=== PATIENT | male | born 1970 | race Caucasian/White ===

== ENCOUNTER 2023-10-20 18:04 | Emergency (ER) | payer OTHER ==
[~2023-10-20] VITALS: Ht 180.3 cm; Wt 93.0 kg
== END 2023-10-20 22:05 | disposition home or self-care (01) ==
LOC: ER 18:04
DX: L03.012 Cellulitis of left finger (principal); R22.1 Localized swelling, mass and lump, neck; E11.65 Type 2 diabetes mellitus with hyperglycemia

== ENCOUNTER 2023-12-01 16:58 | Inpatient (IN) | payer OTHER ==
[~2023-12-01] VITALS: Ht 180.3 cm; Wt 94.4 kg
[~2023-12-01 16:58] MED LIST: SULTRIDS PO
[2023-12-01] MEDS ORDERED: OMEP20ER PO (17:17)
[2023-12-01] MEDS ORDERED: GLIP5 PO (17:17)
[2023-12-01 17:21] LABS: BASOPHILS ABSOLUTE AUTO 0.02 K/mm3 (0.00-0.23); BASOPHILS PERCENT AUTO 0 % (0-2); EOSINOPHILS ABSOLUTE AUTO 0.04 K/mm3 (0.00-0.68); EOSINOPHILS PERCENT AUTO 0 % (0-6); Hematocrit 43.5 % (37.0-53.0); Hemoglobin 15.2 g/dL (13.5-17.5); IMMATURE GRAN ABSOLUTE AUTO 0.09 K/mm3 (0.00-0.10); IMMATURE GRAN PERCENT AUTO 1 % (0-1); LYMPHOCYTES ABSOLUTE AUTO 0.62 K/mm3 (0.84-5.20); LYMPHOCYTES PERCENT AUTO 5 % (21-46); MONOCYTES ABSOLUTE AUTO 0.93 K/mm3 (0.16-1.47); MONOCYTES PERCENT AUTO 7 % (4-13); Mean Corpuscular HGB 29.2 pg (26.0-34.0); Mean Corpuscular HGB Conc 34.9 g/dL (31.5-36.5); Mean Corpuscular Volume 84 fL (80-100); Mean Platelet Volume 9.6 fL (9.1-12.4); NEUTROPHILS ABSOLUTE AUTO 12.09 K/mm3 (1.96-9.15); NEUTROPHILS PERCENT AUTO 88 % (41-73); Platelet Count 234 K/mm3 (150-400); RDW Coefficient Variation 12.5 % (11.7-14.2); RDW Standard Deviation 38.1 fL (35.1-46.3); White Blood Cell Count 13.79 K/mm3 (4.00-11.30)
[2023-12-01] MEDS ORDERED: NS 1,000 ML IV ONE (17:25)
[2023-12-01] MEDS ORDERED: Ampicillin Sod/Sulbactam Sod 3 GM in NS 100 ML IV ONE (17:50)
[2023-12-01] MEDS ORDERED: NS 1,000 ML IV SCH ×2 (17:50)
[2023-12-01] MEDS ORDERED: HYDROmorphone HCl/Pf 1MG SYR IV ONE ×2 (17:55→22:50)
[2023-12-01] MEDS ORDERED: Ondansetron HCl 2 MG / ML 2ML Vial IV ONE (17:55)
[2023-12-01 18:03] LABS: Albumin, Blood 3.4 g/dL (3.4-5.0); Albumin/Globulin Ratio 0.7 (0.8-1.8); Bilirubin, Total 0.6 mg/dL (0.1-1.0); Bun/Creatinine Ratio 8.6 (12.0-20.0); Calcium, Blood 9.2 mg/dL (8.5-10.1); Creatinine, Blood 0.93 mg/dL (0.60-1.20); Globulin, Blood 4.9 g/dL (2.2-4.0); Potassium, Blood 4.2 mmol/L (3.5-5.5); Total Protein, Blood 8.3 g/dL (6.4-8.2)
[2023-12-01 18:31] LABS: pH Blood Venous 7.34 (7.34-7.37)
[2023-12-01 18:32] LABS: Base Excess Venous 0.7 mmol/L; Bicarbonate Venous 23.5 mmol/L (24.0-30.0); PCO2 Venous 49.3 mmHg (38-42)
[2023-12-01] MEDS ORDERED: Dexamethasone Sod Phos 10 MG/ML 1ML VIAL IV ONE (22:15)
[2023-12-01] MEDS ORDERED: Magnesium Hydroxide Conc 10 ML UDC PO PRN (22:55)
[2023-12-01] MEDS ORDERED: Acetaminophen 325 MG TABLET PO PRN (23:00)
[2023-12-01] MEDS ORDERED: Ondansetron HCl 2 MG / ML 2ML Vial IV PRN (23:00)
[2023-12-01] MEDS ORDERED: Insulin NPH 100 Unit / ML 10ML Vial SC ONE (23:40)
[2023-12-01] MEDS ORDERED: HydrALAZINE HCl 20 MG / ML 1ML Vial IV PRN (23:45)
[2023-12-02] VITALS (9 sets, daily range): BP systolic 105–126; BP diastolic 73–90
[2023-12-02] MEDS ORDERED: NS 1,000 ML IV SCH
[2023-12-02] MEDS ORDERED: Ampicillin Sod/Sulbactam Sod 3 GM in NS 100 ML IV SCH
--- NOTE | 2023-12-02 02:00 | NUR ---
ARRIVAL TO PCU NOTE RECEIVED REPORT FROM RESIDENTIAL LEASING AGENT NUZHAT BURT AT 0050, PT SHORTLY ARRIVED TO PCU 2 AT 0117. TRANSFERRED FROM [facility] TO PCU BED VIA 1 ASSIST. A/Ox4 AND COOPERATIVE WITH CARE. RIGHT FACIAL/NECK MASS NOTED TO BE TENDER, FIRM, AND WARM TO THE TOUCH. REPORTS CHONIC VISION ISSUES FOR RIGHT EYE DUE TO OLD INJURY. CARDIAC, TELEMETRY SHOWS SR 90'S WITH NO REPORTS OF CP, PRESSURE, OR DIZZINESS. SBP STABLE RANGING 120'S. RESPIRATORY, MAINTAINS SPO2 >90% ON RA. ENDORSES INCREASING DIFFICULTY BREATHING SINCE MASS HAS INCREASED IN SIZE. RR EVEN AND UNLABORED WITH NO STRIDOR NOTED UPON ARRIVAL. GI/, BS PRESENT IN ALL QUADRANTS. DEBNIES N/V/D OR ABD TENDERNESS. REPORTS HX OF URINARY URGENCY. ENDORSES IV METH USE "ABOUT 5 DAYS AGO". ALSO REPORTS HX OF COCAINE USE. CHECKED UPON ARRIVAL SHOWING CB, INSULIN ORDERED PER EMAR. PT STATES, "MY BLOOD SUGAR NORMALLY RANGES BETWEEN 220-270 AT HOME". DENIES INSULIN USE AT HOME AND ONLY USES ORAL GLUCOSE CONTROLLING MEDICATIONS. ENT CONSULT IN PLACE. WILL CONTINUE TO PROCESS MD ORDERS. BALDOMERO BUTT UPON ARRIVAL TO PCU.
[2023-12-02 04:58] LABS: BASOPHILS ABSOLUTE AUTO 0.03 K/mm3 (0.00-0.23); BASOPHILS PERCENT AUTO 0 % (0-2); EOSINOPHILS ABSOLUTE AUTO 0.01 K/mm3 (0.00-0.68); EOSINOPHILS PERCENT AUTO 0 % (0-6); Hematocrit 40.6 % (37.0-53.0); Hemoglobin 13.8 g/dL (13.5-17.5); IMMATURE GRAN ABSOLUTE AUTO 0.21 K/mm3 (0.00-0.10); IMMATURE GRAN PERCENT AUTO 1 % (0-1); LYMPHOCYTES ABSOLUTE AUTO 0.54 K/mm3 (0.84-5.20); LYMPHOCYTES PERCENT AUTO 4 % (21-46); MONOCYTES ABSOLUTE AUTO 0.45 K/mm3 (0.16-1.47); MONOCYTES PERCENT AUTO 3 % (4-13); Mean Corpuscular Volume 82 fL (80-100); Mean Platelet Volume 10.2 fL (9.1-12.4); NEUTROPHILS ABSOLUTE AUTO 13.82 K/mm3 (1.96-9.15); NEUTROPHILS PERCENT AUTO 92 % (41-73); Platelet Count 223 K/mm3 (150-400); RDW Coefficient Variation 12.4 % (11.7-14.2); RDW Standard Deviation 37.3 fL (35.1-46.3); Red Blood Cell Count 4.93 M/mm3 (4.30-5.90); White Blood Cell Count 15.06 K/mm3 (4.00-11.30)
[2023-12-02 05:20] LABS: Bun/Creatinine Ratio 12.7 (12.0-20.0); Calcium, Blood 8.5 mg/dL (8.5-10.1); Creatinine, Blood 0.63 mg/dL (0.60-1.20); Potassium, Blood 4.2 mmol/L (3.5-5.5)
[2023-12-02] MEDS ORDERED: Pantoprazole Sodium 40 MG Injection IV SCH (06:00)
[2023-12-02] MEDS ORDERED: Dexamethasone Sod Phos 10 MG/ML 1ML VIAL IV SCH (06:00)
--- NOTE | 2023-12-02 06:12 | NUR ---
SHIFT SUMMARY NO ACUTE CHANGES SINCE ARRIVAL TO PCU NOTE. SEE NOT FOR MORE DETAILS. CONTINUES TO MAINTAIN SPO2 >90% ON RA. NO INCREASE IN NECK MASS NOTED. ENT CONSULT CALLED IN THIS AM TO ANSWERING SERVICE. NO NEW ORDERS AT THIS TIME. WILL REPORT TO ONCOMING RN. MARIYA BUTT OF THIS NOTE.
[2023-12-02] MEDS ORDERED: Lactobacil 2-S.Thermo-Bifido 1 1 Cap PO SCH (09:00)
[2023-12-02] MEDS ORDERED: Insulin NPH 100 Unit / ML 10ML Vial SC SCH ×2 (09:00→21:00)
[2023-12-02] MEDS ORDERED: Enoxaparin 40 MG/0.4 ML SYR SC SCH (09:00)
[2023-12-02] MEDS ORDERED: Insulin Human Lispro 100 Units/ML 3ML Syringe SC SCH ×4 (09:45→21:25)
[2023-12-02] MEDS ORDERED: Lidocaine HCl 4% Topical Soln 50 ML BTL TOP ONE (10:55)
[2023-12-02] MEDS ORDERED: Lidocaine HCl 4% 5 ML SDA INH ONE (11:00)
[2023-12-02] MEDS ORDERED: Oxymetazoline 0.05% Nasal Relief Spray 15mL BTL ONE (11:30)
[2023-12-02] MEDS ORDERED: CLINDAMYCIN PHOSPHATE/D5W 50 ML IV SCH (12:00)
--- NOTE | 2023-12-02 13:36 | NUR ---
Upon receiving a referral for spiritual care, I visited the patient. He talks at length about his life. He shares about his more shining moments and is open about his areas where growth is needed. He shares his fears about what is happening with him medically but says that he is focusing on God. He also shares his unique views about what the Bible says but also speaks of his commitment to God and bringing Him glory. He explains about his significant other and how she has changed his life for the better. I normalize his fears and feelings and provided therapeutic listening and prayer. Patient responded well and showed signs of greater hope and an elevated mood. I will cotntinue to remain available to patient and family.
[2023-12-02] MEDS ORDERED: Lidocaine 2%-Epineph 1:100000 20 ML MDV ONE (14:55)
[2023-12-02] MEDS ORDERED: [UNRECOGNIZED DRUG - OTHER] INFIL SCH (14:55)
[2023-12-02] MEDS ORDERED: FentaNYL Citrate 50 MCG/ML 2 ML Injection ONE (15:16)
[2023-12-02] MEDS ORDERED: FentaNYL Citrate 50 MCG/ML 2 ML Injection IV ONE (15:20)
[2023-12-02] MEDS ORDERED: TraMADol HCl 50 MG Tab PO PRN (16:00)
--- NOTE | 2023-12-02 16:08 | NUR ---
DR. NICOLAS CAME TO BEDSIDE AND DID A LARYNGOSCOPY. AT BEDSIDE WAS LEXIE RT, ALBARO [facility] ICU ROCKET MOTOR MECHANIC, CHALINO SU PCU ROCKET MOTOR MECHANIC, AND AYAH MANAGER BODY. AFTER THE SCOPE DR. NICOLAS GAVE THE PT EPI/LICOCANE SUBQ INTO RIGHT SIDE OF NECK MASS. HE LANCED THE SITE AND PLACED A DRAIN. 75MCG OF FENTANYL WAS GIVEN FOR PAIN DURING THE PROCEDURE. DRAIN WAS SUTURED UP AND 4X4 GAUZE PLACED TO ABSORB THE DRAINAGE. VS REMAIN STABLE.
[2023-12-02] MEDS ORDERED: Insulin Glargine-Yfgn 100 Unit/mL 3 ML SYR SC SCH ×2 (17:00→21:25)
--- NOTE | 2023-12-02 17:42 | NUR ---
SHIFT SUMMARY A&OX4, IND IN THE ROOM, CALLS APPROPRAITELY, AND CAN MAKE HIS NEEDS KNOWN. HE USES THE URINAL AT BEDSIDE. THE PT HAS BEEN SR ON TELE W/O ANY ANGINA OR CHEST PRESSURE. HE REMAINS ON RA AND SP02 >90%. DR. NICOLAS CAME BY AND DID AN I&D TO THE PT'S MASS ON THE RIGHT SIDE OF THE NEXT. HE WANTED STERILE GAUZE FOR THE DRESSING. THERE HAS BEEN MINIMAL OUTPUT SINCE THE DRAIN WAS PLACED. THIS WAS DISCUSSED WITH MY CHARGE NURSE. ONE OF THE ABCESS LABS REQUIRES AT LEAST 1ML OF DRAINAGE W/O USING A SWAB. I TRIED TO COLLECT THIS BUT WAS UNSUCESSFUL. LAB MADE AWARE AND THEY ARE GOING TO LOOK TO SEE IF THERE IS A SPECIFIC LAB FOR THE ABCESS. SEE NOTES FOR UPDATES.
[2023-12-02] MEDS ORDERED: Clindamycin 900mg in D5W 50ML 50 ML IV SCH (22:30)
[2023-12-03 03:56] VITALS: BP 109/76
[2023-12-03 04:36] LABS: Mean Corpuscular HGB 28.4 pg (26.0-34.0); Mean Corpuscular Volume 81 fL (80-100); Mean Platelet Volume 9.9 fL (9.1-12.4); Platelet Count 296 K/mm3 (150-400); RDW Coefficient Variation 12.5 % (11.7-14.2); RDW Standard Deviation 36.8 fL (35.1-46.3); Red Blood Cell Count 4.93 M/mm3 (4.30-5.90); White Blood Cell Count 17.26 K/mm3 (4.00-11.30)
[2023-12-03 05:03] LABS: Albumin, Blood 2.6 g/dL (3.4-5.0); Anion Gap 12 mmol/L (3-11); Blood Urea Nitrogen 26 mg/dL (8-24); Bun/Creatinine Ratio 35.4 (12.0-20.0); CO2, Blood 23 mmol/L (21-32); Chloride, Blood 104 mmol/L (98-108); Creatinine, Blood 0.73 mg/dL (0.60-1.20); Glomerular Filtration Rate 108 (60-); Glucose, Blood 372 mg/dL (70-99); Phosphorus, Blood 3.3 mg/dL (2.5-4.9); Potassium, Blood 4.1 mmol/L (3.5-5.5); Sodium, Blood 135 mmol/L (136-145)
--- NOTE | 2023-12-03 05:54 | NUR ---
1915 Assumed care of pt, bedside report completed. Shift plan of care reviewed with pt and at [facility], all questions answered. Pt with uneventful shift, no significant pain though pt does report Right neck is "tight and uncomfortable". [place] in R neck draining to gauze sponges held in place with tape and stockinette, scant amount of sero/sang drainage. Unable to collect 1ml of drainage at a time to send to lab. Will report to oncoming shift. Please see full assessment for additional details. No further complaints or concerns at this time, will continue to monitor.
[2023-12-03 07:25] VITALS: BP 104/80
[2023-12-03] MEDS ORDERED: Insulin Human Lispro 100 Units/ML 3ML Syringe SC SCH ×4 (07:30→16:30)
[2023-12-03] MEDS ORDERED: Insulin Glargine-Yfgn 100 Unit/mL 3 ML SYR SC SCH (09:00)
[2023-12-03] MEDS ORDERED: Dexamethasone Sod Phos 10 MG/ML 1ML VIAL IV SCH (09:00)
[2023-12-03 10:50] VITALS: BP 112/80
--- NOTE | 2023-12-03 10:54 | NUR ---
I CALLED DR. BECERRIL AND DR. NICOLAS ABOUT THE PT'S INCREASED SWELLING IN HIS NECK AND NOW IN HIS LIPS AND RIGHT CHEEK. DR. BECERRIL SAID THE TEAM WILL COME SEE HIM, BUT WE COULD CALL DR. NICOLAS FOR AN EXPLINATION AND FURTHER RECOMMENDATIONS. I LEFT A MESSAGE WITH DR. NICOLAS'S INJECTION MOLDING MACHINE OPERATOR. AND SHE SAID HE WILL CALL US BACK. VS REMAIN STABLE. PT DOES NOT REPORT ANY INCREASED DYSPHAGIA OR DYSPNEA, BUT HE DID STATE THAT HE IS MORE UNCOMFORTABLE AND FEELS THE SWELLING SPREADING. HE STATES THAT THIS IS THE FIRST TIME HE FEELS THE SWELLING IN HIS LIPS.
--- NOTE | 2023-12-03 11:47 | NUR ---
WHEN DR. NICOLAS CALLED US BACK ABOUT INCREASED FACIAL AND LIP SWELLING HE SAID TO CONTINUE HAVING THE PT DO HIS WARM COMPRESSES, MASSAGE CYST, AND LEAVE HIM UP RIGHT TO HAVE GRAVITY HELP PULL THE FLUID DOWN. HE WANTS TO BE NOTIFIED IF THE PT START HAVING DYSPNEA.
[2023-12-03 13:44] VITALS: BP 107/74
[2023-12-03 15:37] VITALS: BP 117/78
--- NOTE | 2023-12-03 15:54 | NUR ---
SHIFT SUMMARY; PATIENT ARRIVED FROM PCU 2 LATE THIS AFTERNOON. HE IS SITTING WITH HOB AT BETWEEN 45 AND 90 DEGREES. WARM PACK PLACED ON HIS ABCESS ON RIGHT SIDE OF NECK. MINIMAL DRAINAGE IS NOTED. PATIENT HAD BEEN MASSAGING HIS NECK THROUGH THE HOT PACK. EDUCATED PATIENT TO TRY AND MASSAGE ON THE SKIN TO INCREASE BLOOD FLOW AND ENCOURAGE DRAINAGE IOF ABCESS. PATIENT VERBALIZED UNDERSTANDING. HE TAKES HIS MEDICATIONS WHOLE WITH WATER. LUNGS ARE CLEAR TO AUSCULTATION. OBVIOUS SWELLING TO RIGHT NECK RIGHT CHECK AND LIPS APPEAR SLIGHTLY SWOLLEN. HE VERBALIZED PAIN 5/10 AND WAS MEDICATED X 1 WITH ULTRAM WITH GOOD RESULTS. HE IS AO X 4 ON ARRIVAL AND HAS PLEASANT AFFECT. USES CALL LIGHT APPROPRIATELY AND IS ABLE TO MAKE HIS NEEDS KNOWN. PATIENT IS CONTINENTOF BOWEL AND BLADDER USING URINAL NEEDED AND BEDSIDE COMMODE. WILL CONTINUE TO MONITOR THIS PATIENT CLOSELY UNTIL REPORT AND HAND OFF TO NOC SHIFT RN.
[2023-12-03] MEDS ORDERED: NS 250 ML IV PRN (16:15)
[2023-12-03 19:46] VITALS: BP 115/79
--- NOTE | 2023-12-04 04:01 | NUR ---
SHIFT SUMMARY PATIENT IS ALERT AND ORIENTED X4. PATIENT HAS HAD NO ACUTE EVENTS THIS SHIFT. VITAL SIGNS REVIEWED. PATIENT HAS BEEN PLEASENT AND COOPERATIVE WITH CARE THIS SHIFT. IV FLUIDS INFUSED ORDERED. PATIENT HAS NOT COMPLAINED OF PAIN, NAUSEA, SOB OR VOMITTING THIS SHIFT. PATIENTS HAS STAYED OVERNIGHT WITH NO INCIDENTS. BED IN LOCKED AND LOWEST POSITION. CALL LIGHT IN PLACE. WILL MONITOR UNTIL SHIFT CHANGE.
[2023-12-04 05:37] VITALS: BP 107/73
[2023-12-04 06:07] LABS: Hematocrit 40.8 % (37.0-53.0); Mean Corpuscular HGB 28.3 pg (26.0-34.0); Mean Corpuscular HGB Conc 34.3 g/dL (31.5-36.5); Mean Corpuscular Volume 82 fL (80-100); Mean Platelet Volume 9.9 fL (9.1-12.4); Platelet Count 290 K/mm3 (150-400); RDW Coefficient Variation 12.6 % (11.7-14.2); RDW Standard Deviation 37.7 fL (35.1-46.3); Red Blood Cell Count 4.95 M/mm3 (4.30-5.90); White Blood Cell Count 16.98 K/mm3 (4.00-11.30)
[2023-12-04 06:30] LABS: Bun/Creatinine Ratio 34.1 (12.0-20.0); Calcium, Blood 8.5 mg/dL (8.5-10.1); Creatinine, Blood 0.79 mg/dL (0.60-1.20); Potassium, Blood 4.1 mmol/L (3.5-5.5)
[2023-12-04 08:07] VITALS: BP 108/70
[2023-12-04 10:05] LABS: HEPATITIS A ANTIBODY, IGM Negative (Negative); HEPATITIS B CORE ANTIBODY, IGM Negative (Negative); HEPATITIS B SURFACE ANTIGEN Negative (Negative); HEPATITIS C AB CIA INTERP Low Pos (Negative); HEPATITIS C ANTIBODY CIA INDEX 8.51 IV
[2023-12-04 10:15] LABS: HIV 1,2 COMBO ANTIGEN/ANTIBODY Negative (Negative)
[2023-12-04] MEDS ORDERED: Miconazole Nitrate 2% 85 GM PWD TOP SCH (14:00)
--- NOTE | 2023-12-04 16:29 | NUR ---
SHIFT SUMMARY: PT A&OX4/INDEPENDENT IN THE ROOM; MAKES NEEDS KNOWN. HE TOOK A SHOWER TODAY; STATES THAT HE MASSAGED HIS NECK IN THE SHOWER AND SOME DRAINAGE CAME OUT; C/O TENDERNESS WITH PALPATION. HE IS PLEASANT AND COOPERATIVE WITH CARE; CONTINUES TO GET IV ANTIBIOTICS AND STERIODS WERE D/C'D TODAY. BLOOD SUGARS HAVE CONTINUED TO BE ELEVATED 300'S; PT STATES NORMAL FOR HIM. COVERING WITH INSULIN. HE IS IN BED, RESTING; RESP EVEN AND UNLABORED, CALL LIGHT WITHIN REACH, AND BEDSIDE, NO SIGNS OR SYMPTOMS OF DISTRESS, PLAN OF CARE ONGOING.
[2023-12-04 16:59] VITALS: BP 116/75
[2023-12-05 00:13] LABS: HCV QNT BY NAAT (IU/ML) Not Detected; HCV QNT BY NAAT (LOG IU/ML) Not Detected; HCV QNT BY NAAT INTERP Not Detected (Not Detected)
[2023-12-05 05:07] LABS: Hematocrit 40.8 % (37.0-53.0); Hemoglobin 14.2 g/dL (13.5-17.5); Mean Corpuscular HGB 28.6 pg (26.0-34.0); Mean Corpuscular HGB Conc 34.8 g/dL (31.5-36.5); Mean Corpuscular Volume 82 fL (80-100); Mean Platelet Volume 9.4 fL (9.1-12.4); NRBC ABSOLUTE 0.03 K/mm3 (0.00-0.02); NRBC Auto 0.2 /100 WBC (0.0-0.2); Platelet Count 306 K/mm3 (150-400); RDW Coefficient Variation 12.5 % (11.7-14.2); RDW Standard Deviation 37.2 fL (35.1-46.3); Red Blood Cell Count 4.97 M/mm3 (4.30-5.90); White Blood Cell Count 12.57 K/mm3 (4.00-11.30)
--- NOTE | 2023-12-05 05:32 | NUR ---
SHIFT SUMMARY: PATIENT FULLY ORIENTED, COOPERATIVE. ABDOMEN FIRM AND DISTENDED. DRESSING ON DOUG BULB CHANGED. PATIENT COMPLAINED OF PAIN WHEN LYING ON SIDE; ULTRAM PO PRN GIVEN. 1.5L O2 BY NC AT NIGHT WITH CONT PO R/T ELSIE. PATIENT SLEPT WITH SMALL INTERRUPTIONS.
[2023-12-05 05:34] LABS: Albumin, Blood 2.6 g/dL (3.4-5.0); Albumin/Globulin Ratio 0.6 (0.8-1.8); Bilirubin, Total 0.2 mg/dL (0.1-1.0); Bun/Creatinine Ratio 33.7 (12.0-20.0); Creatinine, Blood 0.68 mg/dL (0.60-1.20); Globulin, Blood 4.3 g/dL (2.2-4.0); Potassium, Blood 3.8 mmol/L (3.5-5.5); Total Protein, Blood 6.9 g/dL (6.4-8.2)
--- NOTE | 2023-12-05 05:43 | NUR ---
SHIFT SUMMARY: PATIENT FULLY ORIENTED, COOPERATIVE. ABSCESS ON NECK SEEMINGLY GETTING LARGER THROUGH NIGHT. PATIENT COMPLAINED OF PAIN, ULTRAM GIVEN. LITTLE TO NO DRAINAGE FROM TUBE THROUGH NIGHT. PATIENT SLEPT POORLY.
[2023-12-05 06:00] LABS: BASOPHILS PERCENT MAN 0 % (0-2); EOSINOPHILS PERCENT MAN 0 % (0-6); LYMPHOCYTES ABSOLUTE MAN 1.38 K/mm3 (0.84-5.20); LYMPHOCYTES PERCENT MAN 11 % (21-46); METAMYELOCYTE ABSOLUTE MAN 0.25 K/mm3 (0.00-0.00); METAMYELOCYTE PERCENT MAN 2 % (0-0); MONOCYTES ABSOLUTE MAN 0.62 K/mm3 (0.16-1.47); MONOCYTES PERCENT MAN 5 % (4-13); MYELOCYTE ABSOLUTE MAN 0.12 K/mm3 (0.00-0.00); MYELOCYTE PERCENT MAN 1 % (0-0); NEUTROPHILS ABSOLUTE MAN 10.18 K/mm3 (1.96-9.15); SEG NEUTROPHILS PERCENT MAN 81 % (41-73); TOTAL CELLS COUNTED 100
[2023-12-05 06:31] VITALS: BP 127/87
[2023-12-05 08:03] VITALS: BP 116/87
[2023-12-05] MEDS ORDERED: Insulin Human Lispro 100 Units/ML 3ML Syringe SC SCH (08:30)
[2023-12-05] MEDS ORDERED: Insulin Glargine-Yfgn 100 Unit/mL 3 ML SYR SC SCH (09:00)
[2023-12-05] MEDS ORDERED: OxyCODONE HCL 5 MG TAB PO PRN (09:05)
[2023-12-05] MEDS ORDERED: Dexamethasone Sodium Phosphate 4 MG/ML 1ML Vial IV SCH ×2 (12:00→18:00)
[2023-12-05 14:45] VITALS: BP 104/74
--- NOTE | 2023-12-05 17:07 | NUR ---
SHIFT SUMMARY: PT IS A&OX4 AND INDEPENDENT IN THE ROOM, MAKES NEEDS KNOWN, PLEASANT AND COOPERATIVE WITH CARE. HE IS COMPLAINING OF MORE PAIN IN HIS NECK TODAY THAN YESTERDAY; SITE CONTINUES TO DRAIN;MORE SO FROM INCISION THAT CHRISTI. PATIENT APPLYING WARM COMPRESSES AND TAKING PAIN MEDICATION NEEDED. RESTARTED ON IV STERIODS TODAY, CURRENT CBG 154;BEST HIS BLOOD SUGAR HAS BEEN. PATIENT DOES NOT EXPRESS SIGNS OR SYMPTOMS OF HYPOGLYCEMIA. HE IS IN BED, CALL LIGHT WITHIN REACH, NO SIGNS OR SYMPTOMS OF DISTRESS, PLAN OF CARE ONGOING.
[2023-12-05 19:22] VITALS: BP 115/77
--- NOTE | 2023-12-06 04:19 | NUR ---
SHIFT SUMMARY PT. IS A&O X4, ABLE TO MAKE HIS NEEDS KNOWN, COOP WITH CARE. PT.'S SPENDING THE NIGHT AT THE HOSPITAL. HS B, INSULIN ADMINISTERED ORDERED.PRN OXICODONE ADMINISTERED ORDERED FOR NECK PAIN 7/10WORST WITH GOOD EFFECTIVNESS. ANTIBIOTICS ADMINISTERED IV ORDERED. NECK ON RIGHT SIDE IS SWOLLEN, SOME REDNESS NOTED, NO DRAINAGE NOTED FROM THE CHRISTI DRAIN. DRAIN INTACT AND SKIN C/D AROUND THE DRAIN. NO ACUTE EVENTS NOTED/REPORTED DURING THIS SHIFT. BED AT THE LOWEST POSITION, CALL LIGHT IN REACH. WILL HANDOFF TO THE INCOMING SHIFT NURSE.
[2023-12-06 04:40] VITALS: BP 93/57
[2023-12-06 04:40] LABS: Hematocrit 43.2 % (37.0-53.0); Hemoglobin 14.7 g/dL (13.5-17.5); Mean Corpuscular HGB 28.2 pg (26.0-34.0); Mean Corpuscular Volume 83 fL (80-100); Mean Platelet Volume 9.3 fL (9.1-12.4); NRBC ABSOLUTE 0.02 K/mm3 (0.00-0.02); NRBC Auto 0.2 /100 WBC (0.0-0.2); Platelet Count 350 K/mm3 (150-400); RDW Coefficient Variation 12.5 % (11.7-14.2); RDW Standard Deviation 37.7 fL (35.1-46.3); Red Blood Cell Count 5.22 M/mm3 (4.30-5.90); White Blood Cell Count 11.07 K/mm3 (4.00-11.30)
[2023-12-06 04:55] LABS: Bun/Creatinine Ratio 30.5 (12.0-20.0); Calcium, Blood 8.8 mg/dL (8.5-10.1); Creatinine, Blood 0.79 mg/dL (0.60-1.20); Potassium, Blood 4.6 mmol/L (3.5-5.5)
[2023-12-06 05:18] LABS: BAND PERCENT MAN 3 % (0-8); BASOPHILS PERCENT MAN 0 % (0-2); EOSINOPHILS PERCENT MAN 0 % (0-6); LYMPHOCYTES ABSOLUTE MAN 0.44 K/mm3 (0.84-5.20); LYMPHOCYTES PERCENT MAN 4 % (21-46); METAMYELOCYTE ABSOLUTE MAN 0.66 K/mm3 (0.00-0.00); METAMYELOCYTE PERCENT MAN 6 % (0-0); MONOCYTES ABSOLUTE MAN 0.55 K/mm3 (0.16-1.47); MONOCYTES PERCENT MAN 5 % (4-13); MYELOCYTE ABSOLUTE MAN 0.33 K/mm3 (0.00-0.00); MYELOCYTE PERCENT MAN 3 % (0-0); NEUTROPHILS ABSOLUTE MAN 9.07 K/mm3 (1.96-9.15); SEG NEUTROPHILS PERCENT MAN 79 % (41-73); TOTAL CELLS COUNTED 100
[2023-12-06 07:42] VITALS: BP 111/73
--- NOTE | 2023-12-06 07:49 | NUR ---
NOTE: PT'S CBG THIS AM 478, DR. MERAZ NOTIFIED. WILL GIVE INSULIN PER THE EMAR AND WAIT FOR FURTHER ORDERS IF NECESSARY.
[2023-12-06] MEDS ORDERED: Insulin Glargine-Yfgn 100 Unit/mL 3 ML SYR SC SCH ×2 (08:00)
--- NOTE | 2023-12-06 11:39 | NUR ---
NOTE: PT NOON BLOOD SUGAR IS 443. DR. MERAZ NOTIFIED, THIS NURSE INSTRUCTED TO GIVE INSULIN ACCORDING TO THE SCHEDULED UNITS AND THE SLIDING SCALE. RECHECK IN 2-3 HOURS PER PROVIDER.
--- NOTE | 2023-12-06 14:04 | NUR ---
[address] MER[address] WAS NOTIFIED PER HER REQUEST. NO NEW ORDERS.
[2023-12-06 16:20] VITALS: BP 102/60
--- NOTE | 2023-12-06 16:35 | NUR ---
SHIFT SUMMARY PT AOX4, INDEPENDENT IN THE ROOM. AT THE BS. COOPERATIVE WITH CARE AND MAKES HIS NEEDS KNOWN. CT DONE TODAY, PLAN WAS TO DISCHARGE THE PT BUT THE PROVIDER DECIDED TO KEEP HIM AND HAVE ENT ASSESS TOMORROW. MEDICATED FOR PAIN PER THE EMAR. VOIDING IS ADEQUATE. SEE OTHER NOTES ABOUT BLOOD SUGARS THIS SHIFT. NO ACUTE ISSUES THIS SHIFT. CALL LIGHT WITHIN REACH, BED LOCKED AND IN THE LOWEST POSITION. WILL REPORT TO ONCOMING NURSE.
[2023-12-06 20:23] VITALS: BP 112/77
--- NOTE | 2023-12-07 04:42 | NUR ---
SHIFT SUMMARY PT IS A&O X4, ABLE TO MAKE HIS NEEDS KNOWN, COOP WITH CARE. PT'S SPENDING THE NIGHT BY THE BEDSIDE. PER PT REPORT: "AT LEAST 10/10 NECK, ARM, BEHIND EYESOCKET,THROBBING PAIN ", OXYCODONE 5MG AND TYLENOL 650MG ADMINISTERED ORDERED. VSS. WARM COMPRESSES ADMINISTERED AND ENCOURAGED FOR PT.AND TO APPLY ON THE RIGHT SIDE. CHRISTI DRAIN IS INTACT WITH SUTURE, NO DRAINAGE DURING THIS SHIFT. AT RECHECK, PT. APPEARS RESTING, RR EVEN, UNLABORED. HOB >45 DEGREES. HS B. NO ACUTE EVENTS NOTED/REPORTED DURING THIS SHIFT, BED AT THE LOWEST POSITION, CALL LIGHT IN REACH. WILL HANDOFF TO THE INCOMING SHIFT NURSE.
[2023-12-07 05:32] VITALS: BP 122/77
[2023-12-07 07:30] VITALS: BP 125/76
[2023-12-07 08:10] LABS: Hematocrit 42.8 % (37.0-53.0); Hemoglobin 14.4 g/dL (13.5-17.5); Mean Corpuscular HGB 28.1 pg (26.0-34.0); Mean Corpuscular HGB Conc 33.6 g/dL (31.5-36.5); Mean Corpuscular Volume 83 fL (80-100); Mean Platelet Volume 8.7 fL (9.1-12.4); NRBC ABSOLUTE 0.03 K/mm3 (0.00-0.02); NRBC Auto 0.3 /100 WBC (0.0-0.2); Platelet Count 335 K/mm3 (150-400); RDW Coefficient Variation 12.7 % (11.7-14.2); RDW Standard Deviation 38.5 fL (35.1-46.3); Red Blood Cell Count 5.13 M/mm3 (4.30-5.90); White Blood Cell Count 11.53 K/mm3 (4.00-11.30)
[2023-12-07] MEDS ORDERED: Naloxone HCl 1MG / ML 2ML SYR IV PRN (08:25)
[2023-12-07 08:32] LABS: Bun/Creatinine Ratio 31.1 (12.0-20.0); Calcium, Blood 8.5 mg/dL (8.5-10.1); Creatinine, Blood 0.68 mg/dL (0.60-1.20); Potassium, Blood 3.7 mmol/L (3.5-5.5)
[2023-12-07] MEDS ORDERED: Lidocaine 1%-EPI 1:100,000 50 ML UD SCH (08:50)
[2023-12-07] MEDS ORDERED: Sodium Bicarb 8.4% 1 MEQ/ML 50 ML Vial IV SCH (08:50)
[2023-12-07] MEDS ORDERED: FentaNYL Citrate 50 MCG/ML 2 ML Injection IV SCH (08:50)
[2023-12-07] MEDS ORDERED: OxyCODONE HCL 5 MG TAB PO ONE (09:00)
[2023-12-07] MEDS ORDERED: Docusate Sodium 100 MG Cap PO SCH (09:00)
--- NOTE | 2023-12-07 09:56 | NUR ---
DRAIN PLACEMENT BY DR. FIDENCIO NICOLAS IN TO SEE THE PATIENT THIS AM. GAVE VERBAL ORDERS FOR LIDOCAINE VIAL, SODIUM BICARB VIAL, AND 75 MCG OF FENTANYL TO HAVE READY FOR PROCEDURE. DR. NICOLAS IN ROOM AND READY AT 0930. PT MEDICATED WITH 75 MG OF FENTANYL AND THEN DR. NICOLAS STARTED WITH INCISION & DRAINAGE TO THE RIGHT NECK. DR. NICOLAS THEN PLACED A CHRISTI DRAIN TO THE AREA AND REMOVED PREVIOUS CHRISTI DRAIN. AN EXTRA 25MCG OF FENTANYL WAS GIVEN DURING PROCEDURE. AREA WAS CLEANED UP AND GAUZE DRESSING PLACED OVERTOP PER DR. NICOLAS VERBAL ORDER. PT UP TO BATHROOM AND LINENS CHANGED AFTERWARDS.
[2023-12-07 15:07] VITALS: BP 106/79
--- NOTE | 2023-12-07 18:36 | NUR ---
SHIFT SUMMARY PT IN PAIN THIS AM. MEDICATED WITH OXY ORDERED PLUS AN EXTRA ONE TIME 5 MG OXY TO HELP WITH CHASING PAIN. DR. NICOLAS IN TO SEE THE PATIENT AND PLANS FOR ANOTHER BEDSIDE I&D FOR THE ABCESS POSTERIOR TO PREVIOUS DRAIN. NEW CHRISTI DRAIN PLACED TO R NECK AND PREVIOUS ONE REMOVED. GAUZE COVERING AREAS TO HELP WITH DRAINAGE. SEE NOTE ABOUT PROCEDURE. PT PAIN WELL CONTROLLED THIS AFTERNOON AND SWELLING TO R SIDE OF FACE IS IMPROVED. ST EVALED THE PATIENT. PLAN FOR SOFT FOODS TO HELP WITH SWALLOWING IN RELATION TO ABCESS IN BACK OF THROAT. NO OTHER ACUTE CHANGES IN ASSESSMENT AT THIS TIME. VS REVIEWED. DENIES OTHER NEEDS AT THIS TIME.
[2023-12-07 19:37] VITALS: BP 107/80
[2023-12-07] MEDS ORDERED: HyDROXyzine HCl 25 MG Tab PO ONE (23:00)
[2023-12-08 03:16] VITALS: BP 112/81
[2023-12-08 05:46] LABS: Hematocrit 42.5 % (37.0-53.0); Hemoglobin 14.6 g/dL (13.5-17.5); Mean Corpuscular HGB 28.5 pg (26.0-34.0); Mean Corpuscular HGB Conc 34.4 g/dL (31.5-36.5); Mean Corpuscular Volume 83 fL (80-100); Mean Platelet Volume 8.6 fL (9.1-12.4); Platelet Count 349 K/mm3 (150-400); RDW Coefficient Variation 12.9 % (11.7-14.2); RDW Standard Deviation 38.9 fL (35.1-46.3); Red Blood Cell Count 5.13 M/mm3 (4.30-5.90)
[2023-12-08 07:05] VITALS: BP 109/72
[2023-12-08] MEDS ORDERED: Insulin Human Lispro 100 Units/ML 3ML Syringe SC SCH (11:30)
[2023-12-08] MEDS ORDERED: HyDROXyzine HCl 25 MG Tab PO ONE (14:20)
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
[2023-12-08] MEDS ORDERED: LORazepam 2 MG/ML 1ML Injection IV ONE (15:00)
[2023-12-08 16:02] VITALS: BP 124/90
--- NOTE | 2023-12-08 17:42 | NUR ---
AMA DISCHARGE PT WOKE UP FROM HIS NAP WITH A MIND MADE UP THAT HE WAS LEAVING. PT ASKING FOR HIS IV TO BE REMOVED. PT STATES THAT HE UNDERSTANDS THE RISK OF WORSENING INFECTION, PAIN, BLEEDING, AND IF HE LEAVES AMA. PT STATES HE WILL BE FINE. PT ENCOURAGED TO LABORER LIVESTOCK HIS ABX THAT WERE SENT TO [facility] EARLI[facility] TODAY. HARD SCRIPT FOR GLUCOMETER AND SUPPLIES SENT WITH PATIENT. PT ENCOURAGED TO MONITOR HIS DM2 AND TRY TO CONTROL HIS BLOOD SUGAR TO HELP WITH WOUND HEALING. HARD SCRIPT FOR OXY HELD AND SHREDDED DUE TO DC BEING AMA. PT ALSO ENCOURAGED TO CALL DR. NICOLAS OFFICE SINCE THE CHRISTI DRAIN WAS STILL IN HIS NECK. PT STATES HE UNDERSTANDS. ENCOURAGED PT TO RETURN TO ER IF SYMPTOMS WORSEN. DR. BECERRIL NOTIFIED OF AMA DC.
== END 2023-12-08 17:38 | disposition home or self-care (01) | DRG 872 ==
LOC: ER 16:58 → PCU 16:59 → MEDS 12-02 15:04 → PCU 12-02 15:04 → MEDS 12-03 13:34 → ENPENDDIS 12-08 16:41 → MEDS 12-08 17:38
PROVIDERS: Emergency Medicine; Family Medicine; Family Medicine Adult Medicine; Physician Assistant; Student in an Organized Health Care Education/Training Program; ADMIT Student in an Organized Health Care Education/Training Program
PROC: 3E03329 Introduction of Other Anti-infective into Peripheral Vein, Percutaneous Approach (ICD-10-PCS; principal; 2023-12-02)
PROC: 0J910ZZ Drainage of Face Subcutaneous Tissue and Fascia, Open Approach (ICD-10-PCS; 2023-12-02)
DX: A41.9 Sepsis, unspecified organism (principal); K12.2 Cellulitis and abscess of mouth; B19.20 Unspecified viral hepatitis C without hepatic coma; E11.65 Type 2 diabetes mellitus with hyperglycemia; T38.0X5A Adverse effect of glucocorticoids and synthetic analogues, initial encounter; Z98.890 Other specified postprocedural states; F12.90 Cannabis use, unspecified, uncomplicated; Z79.899 Other long term (current) drug therapy; Z79.84 Long term (current) use of oral hypoglycemic drugs; Z98.1 Arthrodesis status
CPT/HCPCS: 36415; 70491; 80048; 80053; 80069; 80074; 82010; 82803; 82947; 83036; 83605; 85025; 85027; 87040; 87070; 87075; 87077; 87147; 87186; 87205; 87389; 87522; 92526; 92610; 93005; 93010; 94760; 94762; 96361; 96365-59; 96366; 96367; 96368; 96375; 96375-59; 96376; 96376-59; 99285-25; A9270; C9113; G0378; J0295; J0736; J1100; J1170; J1650; J1815; J2060; J2405; J3010; J7030; J7050; Q9967

== ENCOUNTER 2024-02-05 10:39 | Emergency (ER) | payer OTHER ==
[~2024-02-05] VITALS: Ht 180.3 cm; Wt 88.5 kg
[~2024-02-05 10:39] MED LIST changes: +GLIP5 PO; +OMEP20ER PO
[2024-02-05] MEDS ORDERED: INSULIN AS100 UNIT/8 SQ (11:15)
[2024-02-05] MEDS ORDERED: SEMGLEE (Y100 UNIT/1 SQ (11:15)
[2024-02-05] MEDS ORDERED: Dexamethasone Sod Phos 10 MG/ML 1ML VIAL IV ONE (11:25)
[2024-02-05] MEDS ORDERED: Cefepime HCl 2,000 MG in NS 50 ML IV ONE (11:25)
[2024-02-05] MEDS ORDERED: NS 1,000 ML IV SCH (11:30)
[2024-02-05 11:56] LABS: BASOPHILS ABSOLUTE AUTO 0.02 K/mm3 (0.00-0.23); BASOPHILS PERCENT AUTO 0 % (0-2); EOSINOPHILS PERCENT AUTO 1 % (0-6); Hematocrit 44.9 % (37.0-53.0); Hemoglobin 15.6 g/dL (13.5-17.5); IMMATURE GRAN ABSOLUTE AUTO 0.07 K/mm3 (0.00-0.10); IMMATURE GRAN PERCENT AUTO 1 % (0-1); LYMPHOCYTES ABSOLUTE AUTO 1.08 K/mm3 (0.84-5.20); LYMPHOCYTES PERCENT AUTO 13 % (21-46); MONOCYTES ABSOLUTE AUTO 0.58 K/mm3 (0.16-1.47); MONOCYTES PERCENT AUTO 7 % (4-13); Mean Corpuscular HGB 28.4 pg (26.0-34.0); Mean Corpuscular HGB Conc 34.7 g/dL (31.5-36.5); Mean Corpuscular Volume 82 fL (80-100); Mean Platelet Volume 9.1 fL (9.1-12.4); NEUTROPHILS ABSOLUTE AUTO 6.79 K/mm3 (1.96-9.15); NEUTROPHILS PERCENT AUTO 79 % (41-73); Platelet Count 344 K/mm3 (150-400); RDW Coefficient Variation 12.1 % (11.7-14.2); RDW Standard Deviation 35.6 fL (35.1-46.3); White Blood Cell Count 8.64 K/mm3 (4.00-11.30)
[2024-02-05 12:13] LABS: International Normalized Ratio 0.98; Prothrombin Time Results 10.5 Sec (9.7-11.5)
[2024-02-05 12:22] LABS: Albumin, Blood 3.3 g/dL (3.4-5.0); Albumin/Globulin Ratio 0.7 (0.8-1.8); Bilirubin, Direct 0.1 mg/dL (0.0-0.3); Bilirubin, Indirect 0.8 mg/dL (0.1-0.7); Bilirubin, Total 0.9 mg/dL (0.1-1.0); Bun/Creatinine Ratio 15.4 (12.0-20.0); Calcium, Blood 9.2 mg/dL (8.5-10.1); Creatinine, Blood 0.84 mg/dL (0.60-1.20); Globulin, Blood 4.7 g/dL (2.2-4.0); Magnesium, Blood 2.2 mg/dL (1.6-2.4); Phosphorus, Blood 3.2 mg/dL (2.5-4.9); Potassium, Blood 4.3 mmol/L (3.5-5.5)
[2024-02-05] MEDS ORDERED: NS 50 ML IV ONE (13:00)
[2024-02-05] MEDS ORDERED: Cefepime 2000 mg Vial ONE (13:00)
[2024-02-05 15:28] LABS: Source, Urine Clean Catch
[2024-02-05 15:34] LABS: Appearance, Urine Clear (Clear); Bilirubin, Urine Neg (Neg); Blood, Urine Neg (Neg); Glucose Qualitative, Urine 4+ (Neg); Ketones, Urine Neg (Neg); Leukocyte Esterase, Urine Neg (Neg); Nitrite, Urine Neg (Neg); Protein, Urine 1+ (Neg); Urobilinogen, Urine NORM (Normal)
[2024-02-05 15:41] LABS: Color, Urine Pale Yellow (P-Yellow)
== END 2024-02-05 17:34 | disposition home or self-care (01) ==
LOC: ER 10:39
PROVIDERS: Student in an Organized Health Care Education/Training Program
DX: R22.1 Localized swelling, mass and lump, neck (principal); E11.9 Type 2 diabetes mellitus without complications; F15.11 Other stimulant abuse, in remission; Z79.84 Long term (current) use of oral hypoglycemic drugs; Z59.00 Homelessness unspecified; Z55.6 Problems related to health literacy
CPT/HCPCS: 70450; 70491; 80053; 82248; 83605; 83735; 84100; 85025; 85610; 85730; 87040; 93005; 93010; 96361; 96365; 96375; 99285-25; J0692; J1100; J7030; Q9967